=== PATIENT | male | born 1980 | race African-American/Black ===

== ENCOUNTER 2016-05-04 13:05 | Emergency (ER) | payer OTHER ==
[~2016-05-04] VITALS: Ht 185.4 cm; Wt 75.0 kg
[~2016-05-04 13:05] MED LIST: CYCL-36 PO; DICL-86 PO; PRED20 PO; Z.0.NO CURRENT MEDS
[2016-05-04 13:07] VITALS: BP 119/82; PULSE 72; RESP 20; TEMP 98.1; O2SAT 97
[2016-05-04] MEDS ORDERED: KETOROLAC TROMETHAMINE 60 MG/2 ML (IM) VIAL IM ONE (13:30)
[2016-05-04] MEDS ORDERED: ORPHENADRINE INJ 60 MG/2 ML AMP IM ONE (13:30)
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
[2016-05-04] MEDS ORDERED: BACL10TA PO (13:59)
[2016-05-04] MEDS ORDERED: IBUP800T23 PO (13:59)
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
== END 2016-05-04 14:46 | disposition home or self-care (01) ==
LOC: NEPB 13:05
DX: M54.17 Radiculopathy, lumbosacral region (principal); V49.49XA Driver injured in collision with other motor vehicles in traffic accident, initial encounter; Y93.89 Activity, other specified; Y92.410 Unspecified street and highway as the place of occurrence of the external cause
CPT/HCPCS: 72100; 96372; 99284; J1885; J2360